=== PATIENT | male | born 1990 | race African-American/Black ===

== ENCOUNTER 2016-05-16 09:42 | Emergency (ER) | payer MEDICAID ==
[2016-05-16 10:03] VITALS: BP 132/73
--- NOTE | 2016-05-16 10:12 | EDM.PDOC ---
ED HPI Trauma - General Chief Complaint: Upper Extremity Injury/Pain Stated Complaint: fingers in pain Time Seen by Provider: 05/16/16 10:07 Source: Reports: Patient, RN, RN notes reviewed History Limitations: Reports: No limitations - History of Present Illness INITIAL COMMENTS - FREE TEXT/NARRATIVE: Patient presents to the ED at [facility] with a right thumb injury. Patient states around 3:30 this morning, he was moving a coffee table and hit his right thumbs on the edge of the table. No previous injury or trauma. No previous surgeries on the right hand. Symptom Onset Date: 05/16/16 Symptom Onset Time: 03:30 Occurred When: this morning Occurred Where: home Method of Injury: direct blow Severity: mild Pain/Injury Location: Reports: upper extremity, right Consciousness: Reports: no loss of consciousness Associated Symptoms: Reports: no other symptoms Allergies/ADRs: Allergies No Known Allergies Allergy (Verified 05/16/16 09:57) Home Medications: Ambulatory Orders . [No Known Home Meds] 05/16/16 [Confirmed 05/16/16] Past Medical History - Past Health History Medical/Surgical History: Denies Medical/Surgical History Gastrointestinal History: Reports: GERD - Past Surgical History Other GI Surgeries/Procedures: Complains of acid reflux issues Endocrine Surgical History: Reports: None Social & Family History - Family History Family Medical History: Noncontributory - Tobacco Use Smoking Status *Q: Never Smoker Years of Tobacco use: 8 Packs/Tins Daily: 0.5 Used Tobacco, but Quit: No Second Hand Smoke Exposure: No - Recreational Drug Use Recreational Drug Use: No - Living Situation & Occupation Living situation: Reports: , with significant other, with family Occupation: employed Review of Systems - Review of Systems Review Of Systems: See Below Constitutional: Reports: no symptoms Respiratory: Denies: shortness of breath, cough Cardiovascular: Denies: chest pain, palpitations Musculoskeletal: Reports: joint pain (right thumb) Skin: Reports: change in hair/nails (subungual hematoma) Neurological: Reports: no symptoms Trauma Exam - Physical Exam Exam: See Below Exam Limited By: No limitations General Appearance: Reports: alert, no apparent distress Head: Reports: atraumatic, normocephalic Respiratory Exam: Reports: no respiratory distress, lungs clear, normal breath sounds Cardiovascular: Reports: normal peripheral pulses, regular rate, rhythm Extremities: Reports: pain with movement (right thumb), tenderness (joint of right thumb) Skin: Reports: Normal color, Warm/dry - Cornelius Coma Score Best Eye Response (Margie): (4) open spontaneously Best Verbal Response (Margie): (5) oriented Best Motor Response (Margie): (6) obeys commands Cornelius Total: 15 Course - Vital Signs Last Recorded V/S: Last Vital Signs Temp 37.3 C 05/16/16 09:58 Pulse 98 05/16/16 09:58 Resp 16 05/16/16 09:58 BP 132/73 05/16/16 09:58 Pulse Ox 99 05/16/16 09:58 - Orders/Labs/Meds Orders: Active Orders 24 hr Category Date Time Status Fingers Multiple Rt [CR] Stat Exams 05/16/16 10:13 Taken - Radiology Interpretation Free Text/Narrative:: Plain films reviewed; no acute fracture or dislocation seen on plain film Departure - Departure Time of Disposition: 10:55 Disposition: Home, Self-Care 01 Condition: good Clinical Impression: Finger sprain Qualifiers: Encounter type: initial encounter Qualified Code(s): S63.619A - Unspecified sprain of unspecified finger, initial encounter Subungual hematoma of fingernail Qualifiers: Encounter type: initial encounter Qualified Code(s): S60.10XA - Contusion of unspecified finger with damage to nail, initial encounter Instructions: Finger Sprain Referrals: Letty Najera DO [Primary Care Provider] - Forms: ED Department Discharge Additional Instructions: 1. Rest, elevate, and ice several times a day 2. May alternate Tylenol/Advil as needed 3. Keep fingernail open to air; let blood drain out 4. See you Primary as symptoms warrant - Problem List Review Problem List Initiated/Reviewed/Updated: Yes - My Orders Last 24 Hours: My Active Orders 05/16/16 10:13 Fingers Multiple Rt [CR] Stat - Assessment/Plan Last 24 Hours: My Active Orders 05/16/16 10:13 Fingers Multiple Rt [CR] Stat - Free Text/Narrative Note: Cautery pen was used on the patient's right thumb nailbed to release pressure from the subungual hematoma. Tolerated well. No complications.
== END 2016-05-16 11:10 | disposition home or self-care (01) ==
LOC: VM.ED 09:42
DX: S63.601A Unspecified sprain of right thumb, initial encounter (principal); S60.011A Contusion of right thumb without damage to nail, initial encounter; W22.8XXA Striking against or struck by other objects, initial encounter; Y92.009 Unspecified place in unspecified non-institutional (private) residence as the place of occurrence of the external cause
CPT/HCPCS: 11740; 73140-RT; 99283

== ENCOUNTER 2016-10-23 21:11 | Emergency (ER) | payer MEDICAID ==
[2016-10-23 22:31] VITALS: BP 125/85
[2016-10-23] MEDS ORDERED: Alum Hydroxide/Mag Hydroxide 10 ML, Lidocaine 2% 10 ML, Promethazine 12.5 MG PO ONE ×3 (22:43)
[2016-10-23] MEDS ORDERED: GI Cocktail Oral Solution 30 ML PO ONE (22:47)
--- NOTE | 2016-10-23 22:52 | EDM.PDOC ---
ED HPI GENERAL MEDICAL PROBLEM - General Chief Complaint: Chest Pain Stated Complaint: CHEST & STOMACH PAINS Time Seen by Provider: 10/23/16 21:47 Source of Information: Reports: Patient History Limitations: Reports: No Limitations - History of Present Illness INITIAL COMMENTS - FREE TEXT/NARRATIVE: Patient states has had "pain when pressing on his lower chest" for the last few days. Has a history of reflux about a year aago. Was on Prilosec for a while and it helped. He started taking maalox and that helped more so he quit taking prilosec and after felt better didn't take the maalox any more. He was exposed to a respiratory infection about a week ago and has an intermittent cough but no sputum production. He is no worse than a week ago but thought he should come in tonight to get it checked out. Onset: Gradual Onset Date: 10/16/16 Onset Time: 08:00 Duration: Day(s):, Waxing/Waning Location: Reports: Chest, Abdomen Quality: Reports: Burning, Pressure, Same as Previous Episode Severity: Moderate Improves with: Reports: None Worsens with: Reports: None Associated Symptoms: Reports: No Other Symptoms. Denies: Confusion, Diaphoresis , Fever/Chills, Headaches mid sternal chest Pain Score (Numeric/FACES): 6 - Related Data Allergies Allergy/AdvReac Type Severity Reaction Status Date / Time No Known Allergies Allergy Verified 05/16/16 09:57 Home Meds: Home Meds . [No Known Home Meds] 05/16/16 [History] Past Medical History - Past Health History Medical/Surgical History: Denies Medical/Surgical History Gastrointestinal History: Reports: GERD - Past Surgical History Other GI Surgeries/Procedures: Complains of acid reflux issues Endocrine Surgical History: Reports: None Social & Family History - Family History Family Medical History: Noncontributory - Tobacco Use Smoking Status *Q: Never Smoker Years of Tobacco use: 8 Packs/Tins Daily: 0.5 Used Tobacco, but Quit: No Second Hand Smoke Exposure: No - Recreational Drug Use Recreational Drug Use: No - Living Situation & Occupation Living situation: Reports: , with Significant Other, with Family Occupation: Employed ED ROS GENERAL - Review of Systems Review Of Systems: See Below Constitutional: Reports: No Symptoms. Denies: Fever, Chills, Diaphoresis HEENT: Reports: No Symptoms Respiratory: Reports: Cough, Other (mild pain when pressing on epigastric or costal margin areas, denies pain when taking a deep breath or cough. has occasional cough with no sputum production) Cardiovascular: Reports: Other (epigastric area discomfort with burning sensation and full feeling "like he needs to belch" over mid sternal area) Endocrine: Reports: No Symptoms GI/Abdominal: Reports: Diarrhea (diarrhea once or twice daily for the last month or so). Denies: Anorexia, Black Stool, Bloody Stool, Decreased Appetite, Difficulty Swallowing, Distension : Reports: No Symptoms Musculoskeletal: Reports: No Symptoms Skin: Reports: No Symptoms Neurological: Reports: No Symptoms Psychiatric: Reports: No Symptoms Hematologic/Lymphatic: Reports: No Symptoms Immunologic: Reports: No Symptoms ED EXAM, GENERAL - Physical Exam Exam: See Below Exam Limited By: No Limitations General Appearance: Alert, WD/WN, No Apparent Distress Eye Exam: Bilateral Eye: EOMI, PERRL Ears: Normal External Exam, Normal Canal, Normal TMs Nose: Normal Inspection, Normal Mucosa Throat/Mouth: Normal Inspection, Normal Lips, Normal Oropharynx Head: Atraumatic, Normocephalic Neck: Normal Inspection, Supple, Non-Tender Respiratory/Chest: No Respiratory Distress, Lungs Clear, Normal Breath Sounds, No Accessory Muscle Use, Other (mild tenderness with palpation in epigastric and along lower costal margin bilat) Cardiovascular: Normal Peripheral Pulses, Regular Rate, Rhythm, No Gallop, No JVD, No Murmur, No Rub GI/Abdominal: Normal Bowel Sounds, Soft, Non-Tender, No Organomegaly, No Distention Back Exam: Normal Inspection, Full Range of Motion Extremities: Normal Inspection, Normal Range of Motion Neurological: Alert, Oriented, CN II-XII Intact, Normal Cognition, No Motor/ Sensory Deficits Psychiatric: Normal Affect, Normal Mood Skin Exam: Warm, Dry, Intact, Normal Color Lymphatic: No Adenopathy EKG INTERPRETATION EKG Date: 10/23/16 Time: 21:30 Rhythm: NSR Rate (beats/min): 79 Pitkin: normal P-wave: present QRS: normal ST-T: normal QT: normal (possible right ventricular conduction delay in V1-V2 compared to previous EKG but no acute st segment changges or Q waves noted) Comparison: no change Course - Vital Signs Last Recorded V/S: Last Vital Signs Temp 36.5 C 10/23/16 21:20 Pulse 76 10/23/16 21:20 Resp 16 10/23/16 21:20 BP 125/85 10/23/16 21:20 Pulse Ox 98 10/23/16 21:20 - Orders/Labs/Meds Orders: Active Orders 24 hr Category Date Time Status Chest 2V [CR] Stat Exams 10/23/16 22:05 Taken Meds: Medications Discontinued Medications Generic Name Dose Route Start Last Admin Trade Name Keena PRN Reason Stop Dose Admin Al Hydroxide/Mg Hydroxide 30 ml 10/23/16 22:47 10/23/16 22:56 Gi Cocktail PO 10/23/16 22:48 30 ml ONETIME ONE Administration - Re-Assessments/Exams Free Text/Narrative Re-Assessment/Exam: 10/24/16 00:01 Patient seen and evaluated in ER. EKG done with no acute change noted from previous EKG. CXR read by radiology as within normal limits. Patient given GI cocktail with good results. discharged home with recomendations as noted. Advised to follow up with primary provider to discuss further evaluation for GERD. Departure - Departure Time of Disposition: 23:15 Disposition: Home, Self-Care 01 Condition: good Clinical Impression: Gastroesophageal reflux disease Qualifiers: Esophagitis presence: esophagitis presence not specified Qualified Code(s): K21.9 - Gastro-esophageal reflux disease without esophagitis GERD (gastroesophageal reflux disease) Qualifiers: Esophagitis presence: esophagitis presence not specified Qualified Code(s): K21.9 - Gastro-esophageal reflux disease without esophagitis Instructions: Gastroesophageal Reflux Disease, Adult Referrals: Mehnaz Arreola ADOBE LAYER [Primary Care Provider] - Forms: ED Department Discharge Additional Instructions: Start prilosec 20 mg once daily for one month. You may use maalox for more severe reflux. See your regular doctor for further evaluation of you reflux to see if you need a scope to look into your esophagus and stomach. - My Orders Last 24 Hours: My Active Orders 10/23/16 22:05 Chest 2V [CR] Stat - Assessment/Plan Last 24 Hours: My Active Orders 10/23/16 22:05 Chest 2V [CR] Stat
== END 2016-10-23 23:15 | disposition home or self-care (01) ==
LOC: VM.ED 21:11
DX: K21.9 Gastro-esophageal reflux disease without esophagitis (principal)
CPT/HCPCS: 71020; 93005; 99284; A9270

== ENCOUNTER 2017-05-30 19:39 | Emergency (ER) | payer MEDICAID ==
--- NOTE | 2017-05-30 20:06 | EDM.PDOC ---
ED HPI GENERAL MEDICAL PROBLEM - General Chief Complaint: Respiratory Problem Stated Complaint: Cough Time Seen by Provider: 05/30/17 19:46 Source of Information: Reports: Patient, RN, RN Notes Reviewed History Limitations: Reports: No Limitations - History of Present Illness INITIAL COMMENTS - FREE TEXT/NARRATIVE: Patient presents to the ED at [facility] with a one day history of a dry cough, runny nose, and a burning sensation in chest when coughing. Patient states he has not tried any OTC medications. Close family members have been sick with similar symptoms. Patient states he is trying to stay well hydrated with good PO fluid intake. No eye or ear complaints. No N/V/D. Patient denies any SOB. No chest pain. Onset Date: 05/29/17 Upper Chest Pain Score (Numeric/FACES): 4 - Related Data Allergies Allergy/AdvReac Type Severity Reaction Status Date / Time No Known Allergies Allergy Verified 05/30/17 20:12 Home Meds: Home Meds . [No Known Home Meds] 05/30/17 [History] Past Medical History - Past Health History Medical/Surgical History: Denies Medical/Surgical History Cardiovascular History: Reports: Other (See Below) Other Cardiovascular History: chest wall pain (inflammation) Gastrointestinal History: Reports: GERD Musculoskeletal History: Reports: Other (See Below) Other Musculoskeletal History: chest wall pain - Past Surgical History Other GI Surgeries/Procedures: Complains of acid reflux issues Social & Family History - Family History Family Medical History: Noncontributory - Tobacco Use Smoking Status *Q: Never Smoker Years of Tobacco use: 8 Packs/Tins Daily: 0.5 Used Tobacco, but Quit: No Second Hand Smoke Exposure: No - Recreational Drug Use Recreational Drug Use: No - Living Situation & Occupation Living situation: Reports: , with Significant Other, with Family Occupation: Employed ED ROS GENERAL - Review of Systems Review Of Systems: See Below Constitutional: Denies: Fever, Chills, Weakness HEENT: Reports: Rhinitis, Sinus Problem. Denies: Ear Pain, Eye Discharge, Throat Pain Respiratory: Reports: Cough. Denies: Shortness of Breath, Wheezing, Sputum Cardiovascular: Denies: Chest Pain, Palpitations GI/Abdominal: Denies: Abdominal Pain, Nausea, Vomiting Skin: Reports: No Symptoms Neurological: Reports: No Symptoms. Denies: Dizziness, Headache ED EXAM, GENERAL - Physical Exam Exam: See Below Exam Limited By: No Limitations General Appearance: Alert, No Apparent Distress Eye Exam: Bilateral Eye: Normal Inspection, PERRL Ears: Normal External Exam, Normal Canal, Normal TMs Ear Exam: Bilateral Ear: TM normal Nose: Nasal Drainage, Clear Rhinorrhea Throat/Mouth: Normal Inspection, Normal Oropharynx, No Airway Compromise Neck: Supple Respiratory/Chest: No Respiratory Distress, Lungs Clear, Normal Breath Sounds Cardiovascular: Normal Peripheral Pulses, Regular Rate, Rhythm Peripheral Pulses: 2+: Radial (L), Radial (R) GI/Abdominal: Normal Bowel Sounds, Soft, Non-Tender Neurological: Alert, Oriented Skin Exam: Warm, Dry, Intact, Normal Color, No Rash Course - Vital Signs Last Recorded V/S: Last Vital Signs Temp 36.5 C 05/30/17 19:50 Pulse 102 H 05/30/17 19:50 Resp 16 05/30/17 19:50 BP 123/100 H 05/30/17 19:50 Pulse Ox 100 05/30/17 19:50 - Orders/Labs/Meds Orders: Active Orders 24 hr Category Date Time Status Chest 2V [CR] Stat Exams 05/30/17 20:01 Taken Labs: Laboratory Tests 05/30/17 Range/Units 20:50 WBC 8.5 (4.0-10.0) x10^3/uL RBC 4.97 (4.5-6.0) x10^6/uL Hgb 14.9 (14.0-18.0) g/dL Hct 44.1 (40.0-52.0) % MCV 88.7 (78.0-93.0) fL MCH 30.0 (26.0-32.0) pg MCHC 33.8 (32.0-36.0) g/dL RDW Coeff of Toñito 13.6 (10.0-15.0) % Plt Count 206 (130-400) x10^3/uL Neut % (Auto) 71.3 (50.0-80.0) % Lymph % (Auto) 19.9 L (25.0-50.0) % [place] % (Auto) 7.4 (2.0-11.0) % Eos % (Auto) 0.9 (0.0-4.0) % Baso % (Auto) 0.5 (0.2-1.2) % Departure - Departure Time of Disposition: 21:07 Disposition: Home, Self-Care 01 Condition: Good Clinical Impression: Cough, Viral infection Upper respiratory infection Qualifiers: Pharyngitis/tonsillitis etiology: unspecified etiology - Discharge Information Instructions: Upper Respiratory Infection, Adult, [id number] Referrals: Mehnaz Arreola SAMPLER PICKUP [Primary Care Provider] - Forms: ED Department Discharge Additional Instructions: 1. Stay well hydrated and rest 2. No indication for prescription drug treatment at this time. 3. Recommend using over the counter cold medication 4. Try using cough syrup 5. Drink LOTS of water 6. See your Primary as symptoms warrant 7. Call with any questions/concerns - Problem List Review Problem List Initiated/Reviewed/Updated: Yes - My Orders Last 24 Hours: My Active Orders 05/30/17 20:01 Chest 2V [CR] Stat - Assessment/Plan Last 24 Hours: My Active Orders 05/30/17 20:01 Chest 2V [CR] Stat Plan: Labs and xray discussed with patient. No bacterial etiology found. This is only a viral infection as of now. Will treat symptomatically and recommend OTC medications. Patient verbalized understanding and agrees with POC.
[2017-05-30 20:12] VITALS: BP 123/100
== END 2017-05-30 21:18 | disposition home or self-care (01) ==
LOC: VM.ED 19:39
DX: B34.9 Viral infection, unspecified (principal); R05 Cough; K21.9 Gastro-esophageal reflux disease without esophagitis
CPT/HCPCS: 36415; 71046; 85025; 87804; 99283

== ENCOUNTER 2020-03-09 21:01 | Emergency (ER) | payer MEDICAID ==
[2020-03-09 21:53] VITALS: BP 117/72; PULSE 93
--- NOTE | 2020-03-10 01:01 | EDM.PDOC ---
ED HPI GENERAL MEDICAL PROBLEM - General Chief Complaint: General Stated Complaint: BODY SWEATS AND TINGLING Time Seen by Provider: 03/09/20 21:35 Source of Information: Reports: Patient History Limitations: Reports: No Limitations - History of Present Illness INITIAL COMMENTS - FREE TEXT/NARRATIVE: Pt. presents to ER with complaints of "tingling" and lightheadedness. Pt. states that he went out drinking last night and woke up late this afternoon. He has not had anything to drink, and was making some food when the symptoms started. He states that he did eat after the onset of this episode. Denies any chest pain or shortness of breath. He states that he was quite lightheaded when he stood up. No nausea, vomiting, or diarrhea. No abdominal discomfort. He states that the " tingling" was primarily in his extremties, and resolved after a few minutes. Onset Date: 03/09/20 Location: Reports: Generalized - Related Data Allergies Allergy/AdvReac Type Severity Reaction Status Date / Time No Known Allergies Allergy Verified 03/09/20 21:30 Home Meds: Home Meds . [No Known Home Meds] 05/30/17 [History] Past Medical History - Past Health History Medical/Surgical History: Denies Medical/Surgical History Cardiovascular History: Reports: Other (See Below) Other Cardiovascular History: chest wall pain (inflammation) Gastrointestinal History: Reports: GERD Musculoskeletal History: Reports: Other (See Below) Other Musculoskeletal History: chest wall pain - Past Surgical History Other GI Surgeries/Procedures: Complains of acid reflux issues Endocrine Surgical History: Reports: None Social & Family History - Family History Family Medical History: Noncontributory - Tobacco Use Tobacco Use Status *Q: Former Tobacco User Used Tobacco, but Quit: Yes Month/Year Tobacco Last Used: Five years ago - Recreational Drug Use Recreational Drug Type: Reports: Other (see below) Other Recreational Drug Type: Uses CBD products - Living Situation & Occupation Living situation: Reports: , with Significant Other, with Family Occupation: Employed ED ROS GENERAL - Review of Systems Review Of Systems: See Below Constitutional: Reports: No Symptoms. Denies: Fever, Chills, Malaise, Fatigue, Decreased Appetite, Weight Loss, Weight Gain HEENT: Reports: No Symptoms Respiratory: Reports: No Symptoms Cardiovascular: Reports: Lightheadedness Endocrine: Reports: No Symptoms GI/Abdominal: Reports: No Symptoms : Reports: No Symptoms Musculoskeletal: Reports: No Symptoms Skin: Reports: No Symptoms Neurological: Reports: Tingling Psychiatric: Reports: No Symptoms Hematologic/Lymphatic: Reports: No Symptoms Immunologic: Reports: No Symptoms ED EXAM, GENERAL - Physical Exam Exam: See Below Exam Limited By: No Limitations General Appearance: Alert, WD/WN, No Apparent Distress Eye Exam: Bilateral Eye: EOMI, PERRL Head: Atraumatic, Normocephalic Neck: Normal Inspection, Supple, Non-Tender, Full Range of Motion Respiratory/Chest: No Respiratory Distress, Lungs Clear, Normal Breath Sounds, No Accessory Muscle Use, Chest Non-Tender Cardiovascular: Normal Peripheral Pulses, Regular Rate, Rhythm, No Edema, No Gallop, No JVD, No Murmur GI/Abdominal: Normal Bowel Sounds, Soft, Non-Tender, No Mass Extremities: Normal Inspection, Normal Range of Motion, No Pedal Edema, Normal Capillary Refill Neurological: Alert, Oriented, CN II-XII Intact, Normal Cognition, Normal Reflexes, No Motor/Sensory Deficits Psychiatric: Normal Affect, Normal Mood Skin Exam: Warm, Dry, Intact, Normal Color, No Rash Course - Vital Signs Last Recorded V/S: Last Vital Signs Temp 36.6 C 03/09/20 21:31 Pulse 93 03/09/20 21:31 Resp 14 03/09/20 21:31 BP 117/72 03/09/20 21:31 Pulse Ox 99 03/09/20 21:31 Departure - Departure Time of Disposition: 22:30 Disposition: Home, Self-Care 01 Clinical Impression: Dehydration, Near syncope - Discharge Information Instructions: Dehydration, Adult, [id number] Referrals: Alexa La MD [Primary Care Provider] - Forms: ED Department Discharge Additional Instructions: Home to rest. Drink plenty of fluids. Try to eat 3 meals per day. Return to ER if you have chest pain, shortness of breath, or other worrisome signs/symptoms. Otherwise, follow-up in clinic as needed. Sepsis Event Note (ED) - Evaluation Sepsis Screening Result: No Definite Risk - Focused Exam Vital Signs: Vital Signs Temp Pulse Resp BP Pulse Ox 03/09/20 21:31 36.6 C 93 14 117/72 99 - Problem List Review Problem List Initiated/Reviewed/Updated: Yes - Assessment/Plan Plan: Home to rest. Drink plenty of fluids. Try to eat 3 meals per day. Return to ER if you have chest pain, shortness of breath, or other worrisome signs/symptoms. Otherwise, follow-up in clinic as needed.
== END 2020-03-09 21:57 | disposition home or self-care (01) ==
LOC: SUPCPDRO 21:01 → VM.ED 21:01
DX: E86.0 Dehydration (principal); Z87.891 Personal history of nicotine dependence
CPT/HCPCS: 99283; 99284

== ENCOUNTER 2020-07-08 19:52 | Emergency (ER) | payer MEDICAID ==
[2020-07-08] MEDS ORDERED: Lidocaine 2% 10 ML Amp INJECT ONE (20:01)
[2020-07-08] MEDS ORDERED: Bupivacaine 0.5% 30 ML SDV INJECT PRN (20:01)
--- NOTE | 2020-07-08 20:16 | EDM.PDOC ---
ED HPI GENERAL MEDICAL PROBLEM - General Stated Complaint: TOOTH PAIN Time Seen by Provider: 07/08/20 20:00 Source of Information: Reports: Patient - History of Present Illness INITIAL COMMENTS - FREE TEXT/NARRATIVE: Jaciel is a 29 y/o male who comes to the ER with dental pain. He has latanya seen by the dentist and given Hydrocodone and Clindamycin. He reports that the Hydrocodone does not really help. He has only taken 1 pill about an hour ago. He has an upcoming appt next Tuesday for wisdom tooth extraction. No fevers. - Related Data Allergies Allergy/AdvReac Type Severity Reaction Status Date / Time No Known Allergies Allergy Verified 03/09/20 21:30 Home Meds: Home Meds . [No Known Home Meds] 05/30/17 [History] Past Medical History - Past Health History Medical/Surgical History: Denies Medical/Surgical History Cardiovascular History: Reports: Other (See Below) Other Cardiovascular History: chest wall pain (inflammation) Gastrointestinal History: Reports: GERD Musculoskeletal History: Reports: Other (See Below) Other Musculoskeletal History: chest wall pain - Past Surgical History Other GI Surgeries/Procedures: Complains of acid reflux issues Endocrine Surgical History: Reports: None Social & Family History - Family History Family Medical History: No Pertinent Family History - Living Situation & Occupation Living situation: Reports: , with Significant Other, with Family Occupation: Employed Review of Systems - Review of Systems Review Of Systems: See Below Constitutional: Reports: No Symptoms Eyes: Reports: No Symptoms Ears: Reports: No Symptoms Nose: Reports: No Symptoms Mouth/Throat: Reports: Other (Dental pain) Respiratory: Reports: No Symptoms Cardiovascular: Reports: No Symptoms GI/Abdominal: Reports: No Symptoms Genitourinary: Reports: No Symptoms Musculoskeletal: Reports: No Symptoms Skin: Reports: No Symptoms Neurological: Reports: No Symptoms Psychiatric: Reports: No Symptoms ED EXAM, GENERAL - Physical Exam Exam: See Below Exam Limited By: No Limitations General Appearance: Alert, WD/WN, No Apparent Distress (Adult male) Ears: Hearing Grossly Normal Throat/Mouth: Normal Lips, Normal Voice, Other (note bilateral lower wisdom teeth erupting, no sx of infection, some displacement noted and tender with palpation) Neck: Normal Inspection Respiratory/Chest: No Respiratory Distress GI/Abdominal: Soft (Male) Exam: Deferred Rectal (Males) Exam: Deferred Back Exam: Normal Inspection Extremities: Normal Inspection, Normal Capillary Refill Neurological: Alert, Oriented, CN II-XII Intact, Normal Gait Psychiatric: Normal Affect, Normal Mood Skin Exam: Warm, Dry, Intact Lymphatic: No Adenopathy Course - Vital Signs Text/Narrative:: 1999 The patient was seen by the [facility]. A dental block was done. See Procedure Note. PROCEDURE NOTE: DENTAL BLOCK Consent for operation or procedure: Risks and benefits discussed with patient and consent obtained. Risks include facial paralysis, hematoma, and trismus (spasm of the jaw muscle). Benefits include pain control. Lidocaine 2%- 2 ml: Bupivicaine 0.5%-2ml The distribution of the inferior alveolar nerve was identified. Local was injected into that region. A short time later adequate analgesia was obtained. Estimated Blood Loss: minimal Complications: The patient tolerated the procedure well without complications. The patient was given discharge instructions and he left the ER in stable condit ion. - Orders/Labs/Meds Orders: Active Orders 24 hr Category Date Time Status Bupivacaine 0.5% [Marcaine 0.5%] Med 07/08/20 20:01 Active 30 ml INJECT ASDIRECTED PRN Medication Orders Bupivacaine HCl (Marcaine 0.5%) 30 ml INJECT ASDIRECTED PRN PRN Reason: Other Meds: Medications Generic Name Dose Route Start Last Admin Trade Name Freq PRN Reason Stop Dose Admin Bupivacaine HCl 30 ml 07/08/20 20:01 Marcaine 0.5% INJECT ASDIRECTED PRN Other Discontinued Medications Generic Name Dose Route Start Last Admin Trade Name Freq PRN Reason Stop Dose Admin Lidocaine HCl 10 ml 07/08/20 20:01 Xylocaine-Mpf 2% (Sterile-Maged) INJECT 07/08/20 20:02 ONETIME ONE Departure - Departure Time of Disposition: 20:26 Disposition: Home, Self-Care 01 Condition: Good Clinical Impression: Impacted tooth - Discharge Information Instructions: Impacted Molar Referrals: Alexa La MD [Primary Care Provider] - Additional Instructions: -Continue Clindamycin as prescribed. -Continue to use the Hydrocodone/APAP 5/325mg as directed. You may take an additional 650mg of acetaminophen with this medication. -Also use Ibuprofen 200mg 4 tablets every 8 hours -Warm salt water gargles. Use warm or cool packs as needed. -You can buy some over the counter Anbesol to help numb the region -Eat soft foods until you are seen at the Oral Surgeon in [place] -Call the oral surgeon in [place] to see if you can move up your appt. -Return to the ER as needed - My Orders Last 24 Hours: My Active Orders 07/08/20 20:01 Bupivacaine 0.5% [Marcaine 0.5%] 30 ml INJECT ASDIRECTED PRN - Assessment/Plan Last 24 Hours: My Active Orders 07/08/20 20:01 Bupivacaine 0.5% [Marcaine 0.5%] 30 ml INJECT ASDIRECTED PRN
[2020-07-08 21:54] VITALS: BP 134/90; PULSE 84
== END 2020-07-08 20:33 | disposition home or self-care (01) ==
LOC: VM.ED 19:52
DX: K01.1 Impacted teeth (principal)
CPT/HCPCS: 64400; 99282-25; 99283; J3490

== ENCOUNTER 2021-01-17 21:59 | Emergency (ER) | payer MEDICAID ==
[2021-01-17 22:51] LABS: PTT,PARTIAL THROMBOPLSTIN TIME 25.4 SEC (25.6-32.8)
[2021-01-17 22:52] LABS: CHLORIDE,CL 105 mmol/L (98-107); SODIUM,NA 139 mmol/L (136-145)
[2021-01-17 22:54] LABS: ANION GAP 8.6 mmol/L (5-15)
--- NOTE | 2021-01-18 00:02 | EDM.PDOC ---
ED HPI GENERAL MEDICAL PROBLEM - General Stated Complaint: STOMACH PAIN;LOW BACK PAIN;TIRED Time Seen by Provider: 01/17/21 22:00 Source of Information: Reports: Patient History Limitations: Reports: No Limitations - History of Present Illness INITIAL COMMENTS - FREE TEXT/NARRATIVE: Pt. presents to ER with complaints of L sided abdominal discomfort/burning. He states that she has been experiencing this discomfort for a couple of days. He states that he has had some yellow discoloration to his stool. He states that he has had not diarrhea. No nausea or vomiting. Denies any dysuria. Pt. denies any bloody stools. Denies any chest pain or shortness of breath. No rashes. Denies any ill contacts. Nursing reports low grade fever. No recent use of antibiotics or hospitalization. He denies any drinking of water from any untreated water sources. No recent travel outside of the country. Onset Date: 01/16/21 Location: Reports: Abdomen Associated Symptoms: Denies: Diaphoresis, Fever/Chills, Headaches, Nausea/Vomiting - Related Data Allergies Allergy/AdvReac Type Severity Reaction Status Date / Time No Known Allergies Allergy Verified 07/08/20 21:54 Home Meds: Home Meds Acetaminophen/HYDROcodone [[place] 325-5 MG] 1 tab PO Q4HR 07/08/20 [History] Clindamycin HCl 300 mg PO Q8H 07/08/20 [History] Past Medical History - Past Health History Medical/Surgical History: Denies Medical/Surgical History Cardiovascular History: Reports: Other (See Below) Other Cardiovascular History: chest wall pain (inflammation) Gastrointestinal History: Reports: GERD Musculoskeletal History: Reports: Other (See Below) Other Musculoskeletal History: chest wall pain - Past Surgical History Other GI Surgeries/Procedures: Complains of acid reflux issues Endocrine Surgical History: Reports: None Social & Family History - Family History Family Medical History: No Pertinent Family History - Living Situation & Occupation Living situation: Reports: , with Significant Other, with Family Occupation: Employed ED ROS GENERAL - Review of Systems Review Of Systems: Comprehensive ROS is negative, except as noted in HPI. ED EXAM, GENERAL - Physical Exam Exam: See Below Exam Limited By: No Limitations General Appearance: Alert, WD/WN, No Apparent Distress Respiratory/Chest: No Respiratory Distress, Lungs Clear, Normal Breath Sounds, No Accessory Muscle Use, Chest Non-Tender Cardiovascular: Normal Peripheral Pulses, Regular Rate, Rhythm, No Edema, No JVD Peripheral Pulses: 4+: Radial (L) GI/Abdominal: Soft, Non-Tender, No Organomegaly, No Distention, No Mass (Male) Exam: Deferred Rectal (Males) Exam: Deferred Back Exam: Normal Inspection, Full Range of Motion Extremities: Normal Inspection, Normal Range of Motion, Non-Tender, No Pedal Edema, Normal Capillary Refill Neurological: Alert, Oriented, CN II-XII Intact, Normal Cognition, Normal Gait, Normal Reflexes, No Motor/Sensory Deficits Psychiatric: Normal Affect, Normal Mood Skin Exam: Warm, Dry, Intact, Normal Color, No Rash Lymphatic: No Adenopathy Course - Orders/Labs/Meds Labs: Laboratory Tests 01/17/21 01/17/21 01/17/21 Range/Units 22:25 22:32 22:32 WBC 8.3 (4.0-10.0) x10^3/uL RBC 4.74 (4.5-6.0) x10^6/uL Hgb 14.5 (14.0-18.0) g/dL Hct 42.5 (40.0-52.0) % MCV 89.7 (78.0-93.0) fL MCH 30.6 (26.0-32.0) pg MCHC 34.1 (32.0-36.0) g/dL RDW Coeff of [place] 12.6 (10.0-15.0) % Plt Count 239 (130-400) x10^3/uL Immature Gran % (Auto) 0.10 (0.00-0.43) % Neut % (Auto) 61.5 (50.0-80.0) % Lymph % (Auto) 30.6 (25.0-50.0) % [place] % (Auto) 6.9 (2.0-11.0) % Eos % (Auto) 0.4 (0.0-4.0) % Baso % (Auto) 0.5 (0.2-1.2) % Neut # (Auto) 5.1 (1.8-7.7) x10^3/uL Lymph # (Auto) 2.5 (1.0-4.8) x10^3/uL [place] # (Auto) 0.6 (0.0-0.8) x10^3/uL Eos # (Auto) 0.0 (0.0-0.5) x10^3/uL Baso # (Auto) 0.0 (0.0-0.2) x10^3/uL Immature Gran # (Auto) 0.01 (0.00-0.07) x10^3/uL PT 10.6 (9.9-12.5) SEC INR 1.0 L (2.0-3.5) APTT 25.4 L (25.6-32.8) SEC Sodium (136-145) mmol/L Potassium (3.5-5.1) mmol/L Chloride (98-107) mmol/L Carbon Dioxide (21-32) mmol/L Anion Gap (5-15) mmol/L BUN (7-18) mg/dL Creatinine (0.70-1.30) mg/dL Est Cr Clr Drug Dosing Estimated GFR (MDRD) Glucose (70-99) mg/dL Calcium (8.5-10.1) mg/dL Corrected Calcium (8.5-10.1) mg/dL Phosphorus (2.6-4.7) mg/dL Magnesium (1.8-2.4) mg/dL Total Bilirubin (0.2-1.0) mg/dL AST (15-37) U/L ALT (16-63) U/L Alkaline Phosphatase (46-116) U/L C-Reactive Protein (<=0.9) mg/dL Total Protein (6.4-8.2) g/dL Albumin (3.4-5.0) g/dL Globulin Albumin/Globulin Ratio Amylase (25-115) U/L Lipase (73-393) U/L Urine Color Yellow (YELLOW) Urine Appearance Clear (CLEAR) Urine pH 6.5 (5.0-8.0) Ur Specific [place] >=1.030 Urine Protein Negative (NEGATIVE) mg/dL Urine Glucose (UA) Negative (NEGATIVE) mg/dL Urine Ketones Negative (NEGATIVE) mg/dL Urine Occult Blood Negative (NEGATIVE) Urine Nitrite Negative (NEGATIVE) Urine Bilirubin Negative (NEGATIVE) Urine Urobilinogen 0.2 (0.2) EU/dL Ur Leukocyte Esterase Negative (NEGATIVE) 01/17/21 Range/Units 22:32 WBC (4.0-10.0) x10^3/uL RBC (4.5-6.0) x10^6/uL Hgb (14.0-18.0) g/dL Hct (40.0-52.0) % MCV (78.0-93.0) fL MCH (26.0-32.0) pg MCHC (32.0-36.0) g/dL RDW Coeff of [place] (10.0-15.0) % Plt Count (130-400) x10^3/uL Immature Gran % (Auto) (0.00-0.43) % Neut % (Auto) (50.0-80.0) % Lymph % (Auto) (25.0-50.0) % [place] % (Auto) (2.0-11.0) % Eos % (Auto) (0.0-4.0) % Baso % (Auto) (0.2-1.2) % Neut # (Auto) (1.8-7.7) x10^3/uL Lymph # (Auto) (1.0-4.8) x10^3/uL [place] # (Auto) (0.0-0.8) x10^3/uL Eos # (Auto) (0.0-0.5) x10^3/uL Baso # (Auto) (0.0-0.2) x10^3/uL Immature Gran # (Auto) (0.00-0.07) x10^3/uL PT (9.9-12.5) SEC INR (2.0-3.5) APTT (25.6-32.8) SEC Sodium 139 (136-145) mmol/L Potassium 3.6 (3.5-5.1) mmol/L Chloride 105 (98-107) mmol/L Carbon Dioxide 29 (21-32) mmol/L Anion Gap 8.6 (5-15) mmol/L BUN 18 (7-18) mg/dL Creatinine 1.3 (0.70-1.30) mg/dL Est Cr Clr Drug Dosing TNP Estimated GFR (MDRD) > 60 Glucose 97 (70-99) mg/dL Calcium 9.1 (8.5-10.1) mg/dL Corrected Calcium 9.1 (8.5-10.1) mg/dL Phosphorus 3.2 (2.6-4.7) mg/dL Magnesium 2.0 (1.8-2.4) mg/dL Total Bilirubin 0.6 (0.2-1.0) mg/dL AST 15 (15-37) U/L ALT 20 (16-63) U/L Alkaline Phosphatase 81 (46-116) U/L C-Reactive Protein < 0.2 (<=0.9) mg/dL Total Protein 7.1 (6.4-8.2) g/dL Albumin 4.0 (3.4-5.0) g/dL Globulin 3.1 Albumin/Globulin Ratio 1.29 Amylase 63 (25-115) U/L Lipase 83 (73-393) U/L Urine Color (YELLOW) Urine Appearance (CLEAR) Urine pH (5.0-8.0) Ur Specific [place] Urine Protein (NEGATIVE) mg/dL Urine Glucose (UA) (NEGATIVE) mg/dL Urine Ketones (NEGATIVE) mg/dL Urine Occult Blood (NEGATIVE) Urine Nitrite (NEGATIVE) Urine Bilirubin (NEGATIVE) Urine Urobilinogen (0.2) EU/dL Ur Leukocyte Esterase (NEGATIVE) Departure - Departure Time of Disposition: 23:30 Disposition: DC/Tfer to Acute Hospital 02 Clinical Impression: Gastroenteritis - Discharge Information Instructions: Viral Gastroenteritis, Adult, [id number] Referrals: Alexa La MD [Primary Care Provider] - Additional Instructions: Home to rest. Off work tomorrow if needed. Ibuprofen 200mg 3 tabs every 6 hours as needed for discomfort. Recheck in clinic in 7-10 days, sooner if not gradually improving. - Assessment/Plan Plan: Home to rest. Off work tomorrow if needed. Ibuprofen 200mg 3 tabs every 6 hours as needed for discomfort. Recheck in clinic in 7-10 days, sooner if not gradually improving.
[2021-01-18 00:37] VITALS: BP 127/78; PULSE 78
== END 2021-01-17 23:10 | disposition short-term general hospital (02) ==
LOC: VM.ED 21:59
DX: K52.9 Noninfective gastroenteritis and colitis, unspecified (principal)
CPT/HCPCS: 36415; 80053; 81003; 82150; 83690; 83735; 84100; 85025; 85610; 85730; 86140; 99283; 99284